=== PATIENT | female | born 2000 | race Caucasian/White ===

== ENCOUNTER 2018-05-01 19:51 | Outpatient (CLI) | payer MEDICAID ==
[2018-05-01 20:55] LABS: APPEARANCE,URINE SLIGHTLY-CLOUDY; BILIRUBIN,URINE NEGATIVE (NEGATIVE); COLOR,URINE YELLOW; GLUCOSE, URINE NEGATIVE (NEGATIVE); KETONES,URINE NEGATIVE (NEGATIVE); LEUKOCYTE ESTERASE,URINE LARGE (NEGATIVE); NITRITE,URINE NEGATIVE (NEGATIVE); PROTEIN,URINE 30 mg/dL (NEGATIVE); URINE SPECIFIC GRAVITY 1.032; UROBILINOGEN,URINE NEGATIVE mg/dL (<2.0)
[2018-05-01 21:14] LABS: URINE AMPHETAMINES SCREEN NEGATIVE; URINE BARBITURATES SCREEN NEGATIVE; URINE BENZODIAZEPINES SCREEN NEGATIVE; URINE COCAINE SCREEN NEGATIVE; URINE MARIJUANA (THC) SCREEN NEGATIVE; URINE METHADONE SCREEN NEGATIVE; URINE PHENCYCLIDINE SCREEN NEGATIVE
== END 2018-05-01 21:19 | disposition home or self-care (01) ==
LOC: LC 19:51
PROVIDERS: ATTEND Obstetrics & Gynecology Gynecology
PROC: 4A1HXCZ Monitoring of Products of Conception, Cardiac Rate, External Approach (ICD-10-PCS; principal; 2018-05-01)
DX: O26.892 Other specified pregnancy related conditions, second trimester (principal); Z3A.21 21 weeks gestation of pregnancy
CPT/HCPCS: 80307; 81001

== ENCOUNTER 2018-05-19 19:51 | Emergency (ER) | payer MEDICAID ==
[2018-05-19] MEDS ORDERED: NORMAL SALINE 1000 ML 1,000 ML IV ONE (20:52)
[2018-05-19] MEDS ORDERED: NORMAL SALINE 1000 ML 1,000 ML IV PRN (20:52)
--- NOTE | 2018-05-19 20:54 | ER Document Report ---
ED Medical Screen (RME) - General Chief Complaint: Near Syncope Stated Complaint: LIGHT HEADEDNESS,SHORTNESS OF BREATH,BLURRY VISION Time Seen by Provider: 05/19/18 20:52 Notes: 17 years old female with 25 weeks presents today with general weakness tiredness and low blood pressure. Dizziness on standing up. While she was in the bathtub she almost fainted but did not do so. She had a Bartholin cyst drained recently currently on Richardson catheter. She has been taking [place] every 4 hours TRAVEL OUTSIDE OF THE [place] IN LAST 30 DAYS: No - Related Data Allergies/Adverse Reactions: No Known Allergies Allergy (Unverified 05/19/18 20:47) Past Medical History - Social History Chew tobacco use (# tins/day): No Frequency of alcohol use: None Drug Abuse: None Renal/ Medical History: Denies: Hx Peritoneal Dialysis Physical Exam - Vital signs Vitals: Temp Pulse Resp BP Pulse Ox 99.0 F 90 18 104/65 98 05/19/18 20:08 05/19/18 20:08 05/19/18 20:08 05/19/18 20:08 05/19/18 20:08 Course - Vital Signs Vital signs: Temp Pulse Resp BP Pulse Ox 99.0 F 90 18 104/65 98 05/19/18 20:08 05/19/18 20:08 05/19/18 20:08 05/19/18 20:08 05/19/18 20:08
[2018-05-19 21:22] LABS: APPEARANCE,URINE SLIGHTLY-CLOUDY; BILIRUBIN,URINE NEGATIVE (NEGATIVE); COLOR,URINE YELLOW; GLUCOSE, URINE NEGATIVE (NEGATIVE); KETONES,URINE NEGATIVE (NEGATIVE); LEUKOCYTE ESTERASE,URINE LARGE (NEGATIVE); NITRITE,URINE NEGATIVE (NEGATIVE); PROTEIN,URINE NEGATIVE (NEGATIVE); URINE SPECIFIC GRAVITY 1.011; UROBILINOGEN,URINE NEGATIVE mg/dL (<2.0)
[2018-05-19 22:04] LABS: ABSOLUTE EOSINOPHILS # (AUTO) 0.1 10^3/uL (0.0-0.6); ABSOLUTE LYMPHOCYTES (AUTO) 1.4 10^3/uL (0.5-4.7); ABSOLUTE MONOCYTES (AUTO) 0.6 10^3/uL (0.1-1.4); ABSOLUTE NEUT (AUTO) 4.6 10^3/uL (1.7-8.2); BASOPHILS % (AUTO) 0.5 % (0-2); EOSINOPHILS % (AUTO) 1.8 % (0-6); HEMOGLOBIN 10.8 g/dL (12.0-15.5); LYMPHOCYTES % (AUTO) 20.3 % (13-45); MEAN CORPUSCULAR HEMOGLOBIN 31.1 pg (27.0-33.4); MEAN CORPUSCULAR HGB CONC 34.7 g/dL (32.0-36.0); MEAN CORPUSCULAR VOLUME 90 fl (80-97); MONOCYTES % (AUTO) 9.6 % (3-13); PLATELET COUNT 231 10^3/uL (150-450); RED BLOOD COUNT 3.46 10^6/uL (3.72-5.28); RED CELL DISTRIBUTION WIDTH 12.9 % (11.5-14.0); SEGMENTED NEUTROPHILS % (AUTO) 67.8 % (42-78); TOTAL CELLS COUNTED % (AUTO) 100 %; WHITE BLOOD COUNT 6.8 10^3/uL (4.0-10.5)
[2018-05-19 22:22] LABS: ALANINE AMINOTRANSFERASE 27 U/L (5-35); ALBUMIN 3.4 g/dL (3.7-5.6); ALKALINE PHOSPHATASE 53 U/L (50-135); ANION GAP 9 (5-19); ASPARTATE AMINO TRANSFERASE 29 U/L (5-30); BILIRUBIN,DIRECT 0.3 mg/dL (0.0-0.4); BILIRUBIN,TOTAL 0.3 mg/dL (0.2-1.3); BLOOD UREA NITROGEN 7 mg/dL (7-20); CALCIUM 9.3 mg/dL (8.4-10.2); CARBON DIOXIDE 23 mmol/L (22-30); CHLORIDE 106 mmol/L (98-107); GLUCOSE 75 mg/dL (75-110); POTASSIUM 3.9 mmol/L (3.6-5.0); SODIUM 138.2 mmol/L (137-145); TOTAL PROTEIN 6.4 g/dL (6.3-8.2)
--- NOTE | 2018-05-20 00:14 | RADIOLOGY REPORT (SQ) ---
CTA CHEST WITH IV CONTRAST History: Shortness of breath in a 17-year-old female. Comparison: There are no priors to allow for comparison. Technique:Multiple axial images are taken from the level of the thyroid down through the upper abdomen with the use of IV contrast. Images are then reconstructed in the sagittal and coronal planes. 3D rendering with interpretation and reporting of computed tomography, under concurrent supervision; not requiring image postprocessing on an independent workstation using 3D, 3D post processing, 3D reconstructions, Maximum intensity projection (MIPs) Volume rendering. This exam was performed according to our departmental dose-optimization program which includes use of Automated Exposure Control, adjustment of the mA and/or kV according to patient size and/or use of iterative reconstruction technique. Findings: Lungs: Lungs demonstrate airspace opacities in the left lower lobe. There is no evidence of pneumothorax. There is no evidence of pneumomediastinum. Thyroid: The portions of the thyroid which are visualized are within normal limits. Mediastinum: The aorta measures within normal limits. There is no evidence of aortic injury. Main pulmonary artery measures within normal. No acute pulmonary embolus within the main or segmental pulmonary vessels. The heart measures within normal limits. There is no pericardial effusion. There is no mediastinal lymphadenopathy. There is no hilar lymphadenopathy. No coronary artery calcifications. Chest wall: The chest wall is within normal limits. There is no axillary lymphadenopathy. Osseous: Osseous structures demonstrate degenerative change. Subdiaphragm: The subdiaphragmatic abdominal organs included in the [id number] do not demonstrate any acute abnormality allowing for borderline enlarged liver. IMPRESSION: 1. No CT evidence for acute pulmonary embolus. 2. Airspace opacities in the left lower lobe. Please correlate for pneumonia.
--- NOTE | 2018-05-20 02:01 | RADIOLOGY REPORT (SQ) ---
US LIMITED HISTORY: Near syncope. Evaluate . COMPARISON: None. TECHNIQUE: Multiple grayscale and color Doppler sonographic images of the uterus were obtained by the mri technologist. Selected static images were presented to the radiologist. FINDINGS: A single live fetus is identified in breech presentation. The placenta is located anterior, and is free of the cervical os. Cervix is closed and measures 4.5 cm. heart rate is 152 bpm. IMPRESSION: Single IUP in breech presentation. Anterior placenta. Closed cervix. heart rate of 152 bpm.
[2018-05-20] MEDS ORDERED: ALBUTEROL SULFATE HFA (90 MCG/PUFF) 8 GM MDI (1 MDI/ER DISP) IH ONE (02:30)
--- NOTE | 2018-05-20 02:35 | ER Document Report ---
ED General - General Chief Complaint: Near Syncope Stated Complaint: NEAR SYNCOPE Time Seen by Provider: 05/19/18 20:52 Mode of Arrival: Ambulatory Information source: Patient Notes: This is a 17-year-old female 2 para 0 (1 history of miscarriage at 5 weeks), 25 weeks , history of recent Bartholin's cyst (with drain and taking Keflex currently). Patient presents to the emergency room feeling lightheaded and dizzy. She did state she was in a warm bath tonight (sitz bath ) when she felt like she passed out. She denies hitting her head or any trauma. She states that she was dizzy for sometime afterwards. She does report having some shortness of breath. Medicines: Keflex, pain medicines Past medical history: Asthma No known drug allergies OB: Dr. Day TRAVEL OUTSIDE OF THE [place] IN LAST 30 DAYS: No - HPI Onset: Just prior to arrival Onset/Duration: Gradual Quality of pain: No pain Severity: None Pain Level: Denies Associated symptoms: Shortness of breath, Weakness, Other - Dizziness. denies: Chest pain, Headache Exacerbated by: Denies Relieved by: Denies Similar symptoms previously: No Recently seen / treated by doctor: Yes - Related Data Allergies/Adverse Reactions: No Known Allergies Allergy (Unverified 05/19/18 20:47) Past Medical History - General Information source: Patient - Social History Smoking Status: Never Smoker Cigarette use (# per day): No Chew tobacco use (# tins/day): No Frequency of alcohol use: None Drug Abuse: None Lives with: Family Family History: None Patient has suicidal ideation: No Patient has homicidal ideation: No - Past Medical History Cardiac Medical History: Reports: None Pulmonary Medical History: Reports: Hx Asthma EENT Medical History: Reports: None Neurological Medical History: Reports: None Endocrine Medical History: Reports: None Renal/ Medical History: Reports: None. Denies: Hx Peritoneal Dialysis Malignancy Medical History: Reports: None GI Medical History: Reports: None Musculoskeletal Medical History: Reports None Skin Medical History: Reports None Psychiatric Medical History: Reports: Hx Depression - anxiety Past Surgical History: Reports: Hx AppendectomyComment Only: Hx Tonsillectomy - adnoids Review of Systems - Review of Systems Constitutional: denies: Chills, Fever EENT: No symptoms reported Cardiovascular: See HPI Respiratory: Short of breath. denies: Cough, Hemoptysis Gastrointestinal: No symptoms reported Genitourinary: No symptoms reported Female Genitourinary: No symptoms reported Musculoskeletal: No symptoms reported Skin: No symptoms reported Hematologic/Lymphatic: No symptoms reported Neurological/Psychological: See HPI, Weakness Physical Exam - Vital signs Vitals: Temp Pulse Resp BP Pulse Ox 99.0 F 90 18 104/65 98 05/19/18 20:08 05/19/18 20:08 05/19/18 20:08 05/19/18 20:08 05/19/18 20:08 Notes: Physical exam: GENERAL: 17-year-old female, alert and oriented 3, no acute distress HEAD: Atraumatic, normocephalic. EYES: Pupils equal round and reactive to light, extraocular movements intact, sclera anicteric, conjunctiva are normal. ENT: TMs normal, nares patent, oropharynx clear without exudates. Moist mucous membranes. NECK: Normal range of motion, supple without obvious mass or JVD. LUNGS: Breath sounds clear to auscultation bilaterally and equal. No wheezes rales or rhonchi. HEART: Regular rate and rhythm without murmurs, rubs or gallops. ABDOMEN: Soft, normoactive bowel sounds. No tenderness to palpation. No guarding, no rebound. No masses appreciated. EXTREMITIES: Normal range of motion, no pitting or edema. No clubbing or cyanosis. NEUROLOGICAL: Cranial nerves II through XII grossly intact. Normal speech, moving all extremities. PSYCH: Normal mood, normal affect. SKIN: Warm, Dry, normal turgor, no rashes or lesions noted. Course - Re-evaluation Re-evalutation: 05/20/18 02:36 Note: I had a long conversation with the patient. CTA shows no pulmonary emboli. The official report said clinical correlation for the possibility of pneumonia because of most likely some atelectasis in the lower lobes. Clinically, the patient has no evidence of pneumonia. She has not had fever, chills or cough. While she has had some shortness of breath, this is most likely from her underlying asthma. I think now that the is an intra- abdominal organ, it is pressing up against the diaphragm and causing some atelectasis. As far as her urine, there is some white cells and there. She does have treatment for Bartholin's cyst currently and does have a drain and I suspect that the urine is contaminated. In any event, she is already on Keflex which is what I would have given her for a urine infection. She does have good follow-up with Dr. Day of OB. I will provide her with an inhaler for her asthma. I have given instructions to both her and her mother. - Vital Signs Vital signs: Temp Pulse Resp BP Pulse Ox 99.0 F 90 18 104/65 98 05/19/18 20:08 05/19/18 20:08 05/19/18 20:08 05/19/18 20:08 05/19/18 20:08 - Laboratory Result Diagrams: 05/19/18 21:59 05/19/18 21:59 Laboratory results interpreted by me: 05/19/18 05/19/18 05/19/18 21:11 21:59 21:59 RBC 3.46 L Hgb 10.8 L Hct 31.0 L Creatinine 0.38 L Albumin 3.4 L Beta HCG, Quant 96960.00 H Ur Leukocyte Esterase LARGE H - Diagnostic Test Radiology reviewed: Image reviewed, Reports reviewed - CTA shows no evidence of pulmonary emboli. Obstetric ultrasound shows a viable intrauterine at 25 weeks, cervix closed. Discharge - Discharge Clinical Impression: Vasovagal syncope, Condition: Stable Disposition: HOME, SELF-CARE Additional Instructions: As we discussed the CT showed no evidence of blood clots. The ultrasound showed a viable . I want you to stay well hydrated throughout the day: Drink half Gatorade, half water. Continue with the Keflex for the Bartholin's cyst. I want you to take deep breaths throughout the day. I would like you to follow-up with Dr. Day office. You were provided with an inhaler for your asthma: 2 puffs every 4-6 hours as needed. Return to the emergency room for worsening dizziness, any abdominal cramping, abdominal pain, any vaginal bleeding or any concerns or getting worse.
[2018-05-20 02:45] VITALS: BP 102/43
== END 2018-05-20 02:49 | disposition home or self-care (01) ==
LOC: ER 19:51
DX: O26.892 Other specified pregnancy related conditions, second trimester (principal); R55 Syncope and collapse; R53.83 Other fatigue; Z3A.25 25 weeks gestation of pregnancy
CPT/HCPCS: 99284; 96360; 96361; 36415; 84702; 85025; 80053; 81001; 76815; 71275; J7030; J3490